=== PATIENT | female | born 2000 | race Two or more races ===

== ENCOUNTER 2019-09-04 02:05 | Emergency (ER) | payer SELFPAY ==
[~2019-09-04] VITALS: Ht 157.5 cm; Wt 45.0 kg
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
[2019-09-04] MEDS ORDERED: MULTIVIT INFUSN,ADULT 4,VIT K 10 ML, THIAMINE INJ 100 MG, FOLIC ACID INJ 1 MG in IV NOR... IV ONE (03:00)
[2019-09-04 03:08] LABS: BASO % 0 % (0-3); EOS % 0 % (0-3); HEMATOCRIT 43.6 % (36.0-47.0); LYMPH # 1.5 x10^3/uL (1.0-4.8); LYMPH % 18 % (24-48); MEAN CORPUSCULAR HEMOGLOBIN 30 pg (25-35); MEAN CORPUSCULAR HGB CONC 34 g/dL (31-37); MEAN CORPUSCULAR VOLUME 86 fL (79-100); MONO # 0.3 x10^3/uL (0.0-1.1); MONO % 3 % (0-9); NEUT # 6.7 x10^3/uL (1.8-7.7); NEUT % 79 % (31-73); PLATELET COUNT 369 x10^3/uL (140-400); RED BLOOD COUNT 5.05 x10^6/uL (3.50-5.40); RED CELL DISTRIBUTION WIDTH 14.3 % (11.5-14.5); WHITE BLOOD COUNT 8.5 x10^3/uL (4.0-11.0)
[2019-09-04 03:16] LABS: CREATININE 0.8 mg/dL (0.6-1.0); GFR 90.5; POTASSIUM 3.8 mmol/L (3.5-5.1)
[2019-09-04 03:22] LABS: ALBUMIN 4.4 g/dL (3.4-5.0); ALBUMIN/GLOBULIN RATIO 1.1 (1.0-1.7); TOTAL BILIRUBIN 0.3 mg/dL (0.2-1.0); TOTAL PROTEIN 8.4 g/dL (6.4-8.2)
[2019-09-04 03:24] LABS: BILIRUBIN,URINE NEGATIVE (NEG); CLARITY,URINE CLEAR; COLOR,URINE YELLOW; NITRITE,URINE NEGATIVE (NEG); PROTEIN,URINE NEGATIVE (NEG-TRACE); UROBILINOGEN,URINE 0.2 mg/dL (0.2 mg/dL)
[2019-09-04 03:28] LABS: SQUAMOUS EPITHELIAL CELL,UR FEW /LPF
[2019-09-04 03:29] LABS: BACTERIA,URINE 0 /HPF (0-FEW); RBC,URINE 0 /HPF (0-2); WBC,URINE OCC /HPF (0-4)
[2019-09-04 03:31] LABS: BARBITURATES NEG (NEG); BENZODIAZEPINES NEG (NEG); CANNABINOIDS NEG (NEG); COCAINE NEG (NEG); METHADONE NEG (NEG); OPIATES NEG (NEG); PHENCYCLIDINE NEG (NEG)
[2019-09-04 03:32] LABS: AMPHETAMINE/METHAMPHETAMINE NEG (NEG)
[2019-09-04 03:45] VITALS: BP 128/71
--- NOTE | 2019-09-04 04:43 | EKG ---
[facility] [address] [place] [address] Test Date: 2019-09-04 Test Time: 03:19:26 Pat Name: CONCEPCIÓN YORK Department: Room: Gender: F Payroll Manager: : 2000 Requested By: KAL AGUILA Order Number: [id number] Reading MD: Measurements Intervals [place] Rate: 127 P: 244 AK: 106 QRS: 56 QRSD: 72 T: 51 QT: 346 QTc: 509 Interpretive Statements SUPRAVENTRICULAR RHYTHM OTHERWISE NORMAL ECG RI6.02 No previous ECG available for comparison
== END 2019-09-04 04:19 | disposition short-term general hospital (02) ==
LOC: ER 02:05
DX: F10.129 Alcohol abuse with intoxication, unspecified (principal); Y90.6 Blood alcohol level of 120-199 mg/100 ml; F31.9 Bipolar disorder, unspecified
CPT/HCPCS: 36415; 80053; 80307; 81001; 81025; 83735; 85025; 93005; 96365; 96375; 99285; G0480; J2060; J3411; J3490; J7030